=== PATIENT | male | born 1995 | race Caucasian/White ===

== ENCOUNTER 2017-06-01 14:41 | Emergency (ER) | payer SELFPAY ==
[2017-06-01 15:48] LABS: #Eosinphils 0.2 thou/uL (0.0-0.7); #Lymphocytes 1.4 thou/uL (1.20-3.40); #Monocytes 0.6 thou/uL (0.11-0.59); %Basophils 0.4 % (0.0-1.0); %Lymphocytes 16.7 % (28.0-48.0); %Monocytes 7.4 % (0.0-4.0); Hematocrit 49.1 % (42.0-52.0); Mean Platelet Volume 7.5 fL (7.4-10.4); Red Blood Cell (RBC) Count 5.54 mill/uL (4.00-5.20); White Blood Cell (WBC) Count 8.2 thou/uL (4.8-10.8)
[2017-06-01 15:58] LABS: Bilirubin Negative (Negative); Blood, Urine Negative (Negative); Glucose, Urine (Dipstick) Negative (Negative); Ketone, Urine Negative (Negative); Nitrite Negative (Negative); Protein, Urine (Dipstick) Negative (Neg-Trace); Urobilinogen 0.2 mg/dL (0.2-1.0)
[2017-06-01 16:00] LABS: Amphetamine Not Detected (NotDetected); Methadone Not Detected (NotDetected); Methamphetamine Not Detected (NotDetected)
[2017-06-01 16:14] LABS: ALT (SGPT) 11 U/L (8-55); AST (SGOT) 15 U/L (10-45); Alkaline Phosphatase 72 U/L (Less than 750); Anion Gap 13 mmol/L (10-20); BUN (Urea Nitrogen) 16 mg/dL (8.4-21.0); Calc. Creatinine Clearance 0 mL/min (70-130); Calcium 9.6 mg/dL (7.8-10.44); Carbon Dioxide 25 mmol/L (22-29); Chloride 104 mmol/L (98-107); Estimated GFR-MDRD Greater than 90; Protein, Total 7.4 g/dL (6.0-8.3)
== END 2017-06-01 16:35 | disposition home or self-care (01) ==
LOC: ERS 14:41
DX: R56.9 Unspecified convulsions (principal); S60.512A Abrasion of left hand, initial encounter; X58.XXXA Exposure to other specified factors, initial encounter
CPT/HCPCS: 80053; 80306; 81003; 85025; 96360

== ENCOUNTER 2017-06-09 07:06 | Emergency (ER) | payer SELFPAY ==
[2017-06-09] MEDS ORDERED: Fosphenytoin Sodium 1,500 MG, Admixture Fee 1 EACH in Sodium Chloride 0.9% 100 ML IVPB SCH (07:45)
--- NOTE | 2017-06-09 07:47 | RAD ---
3 VIEWS LEFT HAND: Date: 06/09/17 COMPARISON: None. HISTORY: Seizure with hand trauma and pain. FINDINGS: Three views of the left hand show no evidence of acute fracture or dislocation. No radiopaque foreig n body is seen. No degenerative changes are present. IMPRESSION: Unremarkable exam. POS: [facility]
== END 2017-06-09 08:44 | disposition home or self-care (01) ==
LOC: ERS 07:06
DX: R56.9 Unspecified convulsions (principal); F17.210 Nicotine dependence, cigarettes, uncomplicated
CPT/HCPCS: 93005; 96365; J7050; Q2009

== ENCOUNTER 2017-07-25 16:09 | Emergency (ER) | payer SELFPAY ==
[2017-07-25] MEDS ORDERED: Lidocaine 1% w/Epinephrine 1:200K 30 ML VIAL ONE (16:51)
--- NOTE | 2017-07-25 17:25 | CT ---
CT FACE WITHOUT CONTRAST: Date: 07/25/17 HISTORY: Injury. COMPARISON: CT face dated 04/12/17. FINDINGS: There is a large skin laceration over the right cheek. No fracture of the face. Orbital floors, orbit al roofs, lamina papyracea, nasal bones, zygoma, and zygomatic arch are all intact. The orbits and gl obes are normal. No retrobulbar hematoma. Pterygoid plates are intact. There is periodontal disease, as well as a cavity of the left mandibular second premolar. IMPRESSION: Right cheek skin laceration without radiopaque foreign object nor fracture of the face. POS: [facility]
== END 2017-07-25 18:03 | disposition home or self-care (01) ==
LOC: ERS 16:09
DX: S01.81XA Laceration without foreign body of other part of head, initial encounter (principal); F17.210 Nicotine dependence, cigarettes, uncomplicated; W17.89XA Other fall from one level to another, initial encounter; Y93.39 Activity, other involving climbing, rappelling and jumping off
CPT/HCPCS: 12013; 70486

== ENCOUNTER 2017-07-31 17:01 | Emergency (ER) | payer SELFPAY ==
[2017-07-31] MEDS ORDERED: Bacitracin Zinc 1 Packet ONE (17:52)
== END 2017-07-31 18:12 | disposition home or self-care (01) ==
LOC: ERS 17:01
DX: S01.411D Laceration without foreign body of right cheek and temporomandibular area, subsequent encounter (principal); F17.210 Nicotine dependence, cigarettes, uncomplicated; X58.XXXD Exposure to other specified factors, subsequent encounter

== ENCOUNTER 2018-02-06 17:24 | Emergency (ER) | payer SELFPAY ==
[2018-02-06] MEDS ORDERED: Meclizine HCl 25 MG TAB ONE (17:43)
== END 2018-02-06 19:04 | disposition home or self-care (01) ==
LOC: ERS 17:24
DX: R42 Dizziness and giddiness (principal); G40.909 Epilepsy, unspecified, not intractable, without status epilepticus; Z87.891 Personal history of nicotine dependence
CPT/HCPCS: 93005

== ENCOUNTER 2018-03-14 13:33 | Emergency (ER) | payer SELFPAY | END 2018-03-14 14:16 | disposition home or self-care (01) | LOC: ERS 13:33 | DX: Z00.00 Encounter for general adult medical examination without abnormal findings (principal); Z87.891 Personal history of nicotine dependence | CPT/HCPCS: 99282 ==

== ENCOUNTER 2018-05-16 22:16 | Emergency (ER) | payer SELFPAY ==
[2018-05-16] MEDS ORDERED: Ketorolac Tromethamine 60 MG/2 ML VIAL ONE (22:50)
[2018-05-16] MEDS ORDERED: Dexamethasone 10 MG/ML VIAL ONE (22:51)
--- NOTE | 2018-05-16 23:03 | RAD ---
TWO VIEWS CHEST 05/16/18 HISTORY: Cough. PA and lateral views of the chest is obtained. The lungs are well aerated. No evidence of active intrathoracic disease seen. No evidence of effusion s, pneumonia or pneumothorax seen. IMPRESSION: Normal two views chest. POS: [facility]
== END 2018-05-16 23:38 | disposition home or self-care (01) ==
LOC: ERS 22:16
DX: J40 Bronchitis, not specified as acute or chronic (principal); Z87.891 Personal history of nicotine dependence; Z79.899 Other long term (current) drug therapy
CPT/HCPCS: 71046; 87081; 87430; 87804; 96372; J1100; J1885

== ENCOUNTER 2019-03-21 21:34 | Emergency (ER) | payer SELFPAY ==
[2019-03-21] MEDS ORDERED: Lidocaine 1% w/Epinephrine 1:100K 20 ML VIAL ONE (21:57)
== END 2019-03-21 22:19 | disposition home or self-care (01) ==
LOC: ERS 21:34
DX: L05.91 Pilonidal cyst without abscess (principal)
CPT/HCPCS: 10080; J2001

== ENCOUNTER 2019-04-06 03:44 | Emergency (ER) | payer SELFPAY | END 2019-04-06 04:12 | disposition home or self-care (01) | LOC: ERS 03:44 | DX: H10.9 Unspecified conjunctivitis (principal) | CPT/HCPCS: 99283 ==

== ENCOUNTER 2019-10-13 21:13 | Emergency (ER) | payer SELFPAY ==
[2019-10-13] MEDS ORDERED: Divalproex Sodium 250 MG (DR) TAB ONE (23:44)
== END 2019-10-13 23:51 | disposition home or self-care (01) ==
LOC: ERS 21:13
DX: Z76.0 Encounter for issue of repeat prescription (principal); Z71.6 Tobacco abuse counseling; F17.210 Nicotine dependence, cigarettes, uncomplicated; Z79.899 Other long term (current) drug therapy
CPT/HCPCS: 99406